=== PATIENT | male | born 1955 | race Caucasian/White ===

== ENCOUNTER 2024-02-28 14:21 | Emergency (ER) | payer MEDICARE ==
[~2024-02-28] VITALS: Ht 177.8 cm; Wt 134.1 kg
[2024-02-28 16:09] LABS: BASOPHILS % (AUTO) 0.1 % (0-1); EOSINOPHILS % (AUTO) 0.1 % (0-6); HEMATOCRIT 41.5 % (42.0-52.0); HEMOGLOBIN 14.3 g/dl (14.0-17.9); LYMPHOCYTES # (AUTO) 0.3 X10'3 (1.1-4.8); LYMPHOCYTES % (AUTO) 2.6 % (21-51); MEAN CORPUSCULAR HEMOGLOBIN 32.9 PG (27.0-31.0); MEAN CORPUSCULAR HGB CONC 34.4 g/dL (33.0-36.5); MEAN CORPUSCULAR VOLUME 95.9 FL (78-98); MEAN PLATELET VOLUME 8.1 FL (7.4-10.4); MONOCYTES # (AUTO) 0.4 X10'3 (0-0.9); MONOCYTES % (AUTO) 3.1 % (2-12); NEUTROPHILS # (AUTO) 12.2 X10'3 (1.8-7.7); NEUTROPHILS % (AUTO) 94.1 % (42-75); PLATELET COUNT 252 X10'3 (140-440); RED BLOOD COUNT 4.33 X10'6 (4.70-6.10); RED CELL DISTRIBUTION WIDTH 13.1 % (11.5-14.5)
[2024-02-28 16:28] LABS: ALBUMIN 3.6 G/DL (3.4-5.0); ANION GAP 11 (8-16); BLOOD UREA NITROGEN 27 MG/DL (7-18); CALCIUM 8.5 MG/DL (8.5-10.1); CHLORIDE 101 MMOL/L (99-107); CREATININE 1.04 MG/DL (0.60-1.10); GLUCOSE 101 MG/DL (70-104); POTASSIUM 4.1 MMOL/L (3.5-5.1); PRO BRAIN NATRIURETIC PEPTIDE 53 PG/ML (0-125); SODIUM 136 MMOL/L (135-145); TOTAL CARBON DIOXIDE 24.1 MMOL/L (24-32); eCRCL 69 ML/MIN; eGFR 71 ML/MIN
[2024-02-28] MEDS ORDERED: iohexol 350MG/ML 100ml bottle IV ONE (16:53)
[2024-02-28 18:44] VITALS: BP 117/76; PULSE 82; RESP 12; TEMP 99.4; O2SAT 96
== END 2024-02-28 18:45 | disposition home or self-care (01) ==
LOC: ER 14:22
DX: R06.02 Shortness of breath (principal); D84.9 Immunodeficiency, unspecified; R59.1 Generalized enlarged lymph nodes; G47.33 Obstructive sleep apnea (adult) (pediatric); Z20.822 Contact with and (suspected) exposure to COVID-19
CPT/HCPCS: 36415; 71045; 71275; 80048; 83880; 84484; 85025; 87502; 87503; 87811; 93005; 99285; Q9967

== ENCOUNTER 2024-03-01 05:28 | Emergency (ER) | payer MEDICARE ==
[~2024-03-01] VITALS: Ht 177.8 cm; Wt 134.1 kg
[2024-03-01] MEDS: dexamethasone sod phosphate 10mg/ml inj IM STA (07:07)
[2024-03-01] MEDS: ipratropium/albuterol 3ml nebule NEB ONE (07:35)
[2024-03-01] MEDS ORDERED: ALBU18HF2 INH (07:36)
[2024-03-01 07:38] VITALS: PULSE 76; RESP 18; O2SAT 91
[2024-03-01 07:43] VITALS: PULSE 80; RESP 15; O2SAT 95
[2024-03-01 09:05] VITALS: BP 152/92; PULSE 86; RESP 20; TEMP 98.6; O2SAT 92
== END 2024-03-01 09:08 | disposition home or self-care (01) ==
LOC: ER 05:28
DX: J68.0 Bronchitis and pneumonitis due to chemicals, gases, fumes and vapors (principal); G47.30 Sleep apnea, unspecified
CPT/HCPCS: 71045; 93005; 94640; 96372; 99283; J1100; Z7610; 94760